=== PATIENT | male | born 1955 | race Caucasian/White ===

== ENCOUNTER → 2016-12-13 18:59 | Outpatient (CLI) | payer MEDICARE ==
[~2016-12-13 18:59] MED LIST: BACLOFEN10 MG PO; CYCLOBENZAPRINE10 MG PO; GABAPENTIN PO; HYDROCODONE-APA1 TAB PO; LISINOPRIL; LYRICA50 MG PO; NEURONTIN 300300 MG PO; PERCOCET 10/3251 TA1 PO
[2016-12-25 10:53] VITALS: BMI 31.9
== END | disposition home or self-care (01) ==
LOC: D.LABREF 18:59
DX: M19.011 Primary osteoarthritis, right shoulder (principal)

== ENCOUNTER 2016-12-25 07:53 | Inpatient (IN) | payer MEDICARE ==
[2016-12-21 15:05] LABS: BASOPHILS 0.1 % (0.0-2.0); EOSINOPHILS 0.8 % (0-7); HEMATOCRIT 45.5 % (42.0-54.0); HEMOGLOBIN 15.8 g/dL (13.5-17.5); MCH 31.9 pg (26.0-34.0); MCHC 34.7 g/dL (31.0-37.0); MCV 91.7 fL (80.0-100.0); MEAN PLATELET VOLUME 11.2 fL (7.4-10.4); MONOCYTES 6.3 % (2-11); NEUTROPHILS 57.8 % (40-80); PLATELET COUNT 173 10x3/uL (130-400); RBC 4.96 10x6/uL (4.20-6.10); RDW 13.8 % (11.5-14.5); WBC 7.4 10x3/uL (4.8-10.8)
[2016-12-21 15:17] LABS: APTT 29.2 SECONDS (22.8-39.4); INR 1.15 (0.85-1.17); PROTIME 14.6 SECONDS (11.6-15.0)
[2016-12-21 15:21] LABS: APPEARANCE CLEAR (CLEAR); BILIRUBIN NEGATIVE (NEGATIVE); COLOR DK YELLOW (YELLOW); GLUCOSE NEGATIVE (NEGATIVE); KETONE NEGATIVE (NEGATIVE); LEUKOCYTE ESTERASE 1+ (NEGATIVE); NITRITE NEGATIVE (NEGATIVE); PROTEIN NEGATIVE (NEGATIVE)
[2016-12-21 15:22] LABS: BACTERIA FEW /hpf (NONE SEEN); EPITHELIAL CELLS 0-5 /hpf (0-5); MUCUS <1+ /lpf (NONE SEEN); WHITE CELLS - URINE 0-5 /hpf (0-5)
[2016-12-21 15:26] LABS: CALC OSMOLALITY 279 mosm/kg (275-300); CARBON DIOXIDE 28.9 mmol/L (21.0-32.0); CHLORIDE - SERUM 103 mmol/L (98-107); CREATININE - SERUM 0.9 mg/dL (0.6-1.3); GLUCOSE 114 mg/dL (74-106); SODIUM 141 mmol/L (136-145); UREA NITROGEN 7 mg/dL (7-18); eGFR NON AFRICAN AMERICAN > 90 mL/min (90-120)
[2016-12-22 11:46] LABS: ALBUMIN 3.8 g/dL (3.4-5.0); BILIRUBIN - DIRECT 0.09 mg/dL (0.00-0.30); BILIRUBIN - INDIRECT 0.33 mg/dL (0.00-1.00); BILIRUBIN - TOTAL 0.42 mg/dL (0.2-1.3); PROTEIN - SERUM 8.2 g/dL (6.4-8.2)
[2016-12-25] VITALS (13 sets, daily range): BP systolic 103–142; BP diastolic 70–100; Ht 157.5 cm; Wt 79.1 kg
[~2016-12-25] VITALS: Ht 157.5 cm; Wt 79.1 kg
--- NOTE | 2016-12-25 06:44 | NUR ---
0630 PT STATES NO CHANGES IN HEALTH HISTORY ASSESSMENT SINCE INTERVIEWED ON 12/21/16. Dileep PAYTON R.N.
[~2016-12-25 07:53] MED LIST changes: -PERCOCET 10/3251 TA1 PO
--- NOTE | 2016-12-25 08:37 | NUR ---
RIGHT SHOULDER SCRUBBED WITH ALCOHOL AND CHLORAHEXADINE BEFORE PREPPED.
--- NOTE | 2016-12-25 10:20 | NUR ---
PATIENT RECEIVED TO FLOOR FROM PACU. A/O X4. VITAL SIGNS STABLE. CONTINUOUS BLOCK INTACT. DRESSING TO RIGHT SHOULDER CLEAN, DRY AND INTACT. ICE PACK AND SLING IN PLACE. ORIENTED TO ROOM. SIDE RAILS UP X3. BED IN LOW POSITION. CALL LIGHT IN REACH. INCENTIVE SPIROMETER AND USE ON TEACHING PROVIDED. STATES UNDERSTANDING. WILL CONTINUE TO MONITOR.
--- NOTE | 2016-12-25 12:45 | NUR ---
ALERT IN BED. RESPIRATIONS EVEN AND UNLABORED. DENIES NEEDS. VITAL SIGNS STABLE. SIDE RAILS UP X2. BED IN LOW POSITION. CALL LIGHT IN REACH. BED ALARM ON.
--- NOTE | 2016-12-25 14:52 | NUR ---
ALERT IN BED WATCHING TV. NO SIGNS OF DISTRESS NOTED. SCHEDULED MEDICATION ADMINISTERED. DENIES PAIN AND OTHER NEEDS. SIDE RAILS UP X2. BED IN LOW POSITION. CALL LIGHT IN REACH. BED ALARM ON.
--- NOTE | 2016-12-25 16:36 | NUR ---
ALERT IN BED TALKING ON PHONE. DENIES NEEDS. BED IN LOW POSITION. SIDE RAILS UP X2. BED IN LOW POSITION. CALL LIGHT IN REACH. BED ALARM ON.
--- NOTE | 2016-12-25 18:25 | NUR ---
XANAX PER PRN ORDER. DENIES FURTHER NEEDS. ICE PACK TO RIGHT SHOULDER. SIDE RAILS UP X2. BED IN LOW POSITION. CALL LIGHT IN REACH.
--- NOTE | 2016-12-25 19:20 | NUR ---
RECIEVED SHIFT REPORT. PT IS LYING IN BED. ALERT AND ORIENTED AND ABLE TO VERBALIZE NEEDS. IV IS PATENT AND FLUIDS ARE RUNNING PER ORDER. DRESSING TO RIGHT SHOULDER C/D/I. BLOCK SITE C/D/I. SLING NOTED TO LEFT ARM. PT IS AMBULATOTY WITH ASSISTANCE. PT STATES PAIN IS 8/10. NO NEEDS ARE VERBALIZED AT THIS TIME. WILL CONTINUE TO MONITOR. SIDE RAILS ARE UP X 2. BED IS IN LOWEST POSITION. BED ALARM IS ON FOR SAFETY. CALL LIGHT IS WITHIN REACH.
--- NOTE | 2016-12-25 20:24 | NUR ---
SHIFT ASSESSMENT COMPLETED. NIGHT MEDS GIVEN WITH NO PROBLEMS. PT C/O PAIN 05/10. ADMINISTERED PRESCRIBED PRN NORCO PER ORDER. DENIES FURTHER NEEDS. WILL MONITOR. SIDE RAILS X 2. BED LOW. BED ALARM ON. CALL LIGHT IN REACH.
--- NOTE | 2016-12-25 22:05 | NUR ---
PT IV INFILTRATED. D/C'D WITH CATHETER TIP INTACT BY ANOTHER RN ON FLOOR. WILL RESITE.
[2016-12-26 04:00] VITALS: BP 118/81
--- NOTE | 2016-12-26 06:50 | NUR ---
PATIENT RECEIVED ALERT IN HIGH LEE POSITION WATCHING TV. NO SIGNS OF DISTRESS NOTED. COFFEE PROVIDED PER REQUEST. DENIES FURTHER NEEDS. SIDE RAILS UP X2. BED IN LOW POSITION. CALL LIGHT IN REACH.
--- NOTE | 2016-12-26 08:10 | NUR ---
PATIENT ALERT IN BED. NO SIGNS OF DISTRESS NOTED. SCHEDULED MEDICATION ADMINISTERED. SIDE RAILS UP X2. BED IN LOW POSITION. CALL LIGHT IN REACH.
[2016-12-26 08:33] VITALS: BP 119/81
--- NOTE | 2016-12-26 09:30 | NUR ---
PATIENT UP AMBULATING IN HALLWAY WITH PT. NO SIGNS OF DISTRESS NOTED. WILL CONTINUE TO MONITOR.
[2016-12-26 09:40] LABS: HEMATOCRIT 41.3 % (42.0-54.0); HEMOGLOBIN 14.1 g/dL (13.5-17.5)
--- NOTE | 2016-12-26 11:47 | NUR ---
Patient Name: GABRIEL STUART Admission Status: Elective Accout number: [id number] Admission Date: 12-25-2016 : 1955 Admission Diagnosis: Attending: BRITTON Current LOS: 1 Anticipated DC Date: 12-27-2016 Planned Disposition: Home or Self Care Primary Insurance: MEDICARE A & B Discharge Planning Comments: CM MET WITH PATIENT REGARDING D/C NEEDS AND PLANS. PATIENT STATED HE LIVES WITH HIS (ZANDER), DAUGHTER AND GRANDKIDS. PATIENT STATED THERE ARE 6 STEPS W/RAILS TO ENTER HOME AND NO STAIRS INSIDE. PATIENT IS INDEPENDENT WITH HIS CARE AND HAS A CANE AT HOME. PATIENTS PCP IS DR. REA AND PHARMACY IS [facility] ON [address] PATIENT REFUSED HOME HEALTH. CM WILL CONTINUE TO FOLLOW PATIENT WITH D/C NEEDS AND PLANS. PCP DR. [facility]LVARO [place] ON [address] [phone] ZANDER (SPOUSE) [phone] Associate Professor Of Pathology: Yolie Govea Is the patient Alert and Oriented? Yes 0 * How many steps to enter\exit or inside your home? 6 W/RAILS 0 * PCP DR. REA 0 * Pharmacy [facility] [address] 0 * Preadmission Environment Home with Family 0 * ADLs Independent 0 * Equipment Cane 0 * List name and contact numbers for known caregivers / representatives who currently or will assist patient after discharge: ZANDER (SPOUSE) [phone] 0 * Community resources currently utilized None 0 * Additional services required to return to the preadmission environment? Yes 0 * Can the patient safely return to the preadmission environment? Yes 0 * Has this patient been hospitalized within the prior 30 days at any hospital? No 0 Grand Total: 0
[2016-12-26 12:50] VITALS: BP 128/81
--- NOTE | 2016-12-26 15:06 | NUR ---
SITTING UP IN CHAIR ALERT. NO SIGNS OF DISTRESS NOTED. SCHEDULED MEDICATION ADMINISTERED WELL PRN NORCO. DENIES NEEDS. CALL LIGHT IN REACH.
[2016-12-26 17:33] VITALS: BP 122/85
--- NOTE | 2016-12-26 18:25 | NUR ---
ALERT IN BED WATCHING TV. NO SIGNS OF DISTRESS NOTED. SIDE RAILS UP X2. BED IN LOW POSITION. CALL LIGHT IN REACH.
--- NOTE | 2016-12-26 19:15 | NUR ---
RECIEVED SHIFT REPORT. PT IS LYING IN BED. ALERT AND ORIENTED AND ABLE TO VERBALIZE NEEDS. IV IS PATENT AND SALINE LOC AT THIS TIME. DRESSING TO RIGHT SHOULDER C/D/I. SLING NOTED. PT IS AMBULATORY WITH ASSISTANCE. PT STATES PAIN IS 5/10. NO NEEDS ARE VERBALIZED AT THIS TIME. WILL CONTINUE TO MONITOR. SIDE RAILS ARE UP X 2. BED IS IN LOWEST POSITION. CALL LIGHT IS WITHIN REACH.
--- NOTE | 2016-12-26 21:19 | NUR ---
SHIFT ASSESSMENT COMPLETED. NIGHT MEDS GIVEN WITH NO PROBLEMS. PT C/O PAIN 03/10. ADMINISTERED PRESCRIBED PRN NORCO PER ORDER. DENIES FURHTER NEEDS. WILL MONITOR. SIDE RAILS X 2. BED LOW. CALL LIGHT IN REACH.
[2016-12-26 22:58] VITALS: BP 117/89
[2016-12-27 02:04] VITALS: BP 129/84
[2016-12-27 06:15] VITALS: BP 129/88
--- NOTE | 2016-12-27 06:55 | NUR ---
PATIENT RECEIVED ALERT IN HIGH LEE POSITION WATCHING TV. RESPIRATIONS EVEN AND UNLABORED. SIDE RAILS UP X2. BED IN LOW POSITION. CALL LIGHT IN REACH.
[2016-12-27] MEDS ORDERED: PERCOCET 10/3251 TA1 PO (08:02)
--- NOTE | 2016-12-27 08:11 | NUR ---
PATIENT ALERT IN BED. NO SIGNS OF DISTRESS NOTED. SCHEDULED MEDICATION ADMINISTERED WELL PRN NORCO. NO FURTHER NEEDS VOICED. SIDE RAILS UP X2. BED IN LOW POSITION. CALL LIGHT IN REACH.
[2016-12-27 08:46] VITALS: BP 146/93
--- NOTE | 2016-12-27 10:29 | NUR ---
PATIENT IN MID LEE POSITION RESTING WITH EYES CLOSED. RESPIRATIONS EVEN AND UNLABORED. SIDE RAILS UP X2. BED IN LOW POSITION. CALL LIGHT IN REACH.
--- NOTE | 2016-12-27 12:23 | NUR ---
ALERT IN BED. C/O PAIN 05/10. 1 TAB PERCOCET PER PRN ORDER. NO FURTHER NEEDS. SIDE RAILS UP X2. BED IN LOW POSITION. CALL LIGHT IN REACH.
[2016-12-27 12:45] VITALS: BP 143/97
--- NOTE | 2016-12-27 13:46 | NUR ---
CM REASSESSMENT NOTE: PATIENT IS DISCHARGING HOME TODAY - FAMILY DRIVING HER. PATIENT REFUSED HOME HEALTH OR ANY OTHER NEEDS FOR DISCHARGE.
--- NOTE | 2016-12-27 15:20 | NUR ---
IV TO LEFT FOREARM D/C WITH CATH TIP INTACT. SITE COVERED WITH GAUZE AND BANDAID. DENIES FURTHER NEEDS.
--- NOTE | 2016-12-27 17:00 | NUR ---
D/C TEACHING AND WRITTEN PRESCRIPTION PROVIDED. AMBULATED OFF UNIT WITH STAFF. D/C HOME WITH DAUGHTER IN LAW
--- NOTE | 2017-01-04 14:26 | OP ---
PATIENT NAME: GABRIEL STUART MEDICAL RECORD: [id number] :[birth year] LOCATION:[id number] ADMISSION DATE:12/25/16 SURGEON: KHALIDA SANDERSON MD DATE OF OPERATION: 12/25/2016 Orthopedic Surgery Operative Note PREOPERATIVE DIAGNOSIS: Degenerative arthritis, right shoulder. POSTOPERATIVE DIAGNOSIS: Degenerative arthritis, right shoulder. PROCEDURE: Right total shoulder arthroplasty. SURGEON: Khalida Sanderson MD ANESTHESIA: General. INTRAOPERATIVE COMPLICATIONS: None. SUMMARY OF PATHOLOGIC FINDINGS: The patient has extensive osteoarthritis consistent with preoperative diagnosis. OPERATIVE SUMMARY IN DETAIL: After obtaining the appropriate preoperative orthopedic surgery consent as well as anesthetic consultation, evaluation and clearance, the patient was brought to the operating room and placed on the operating table in supine position. After adequate general laryngeal mask airway was administered, the patient was placed in the beach chair position. All pressure points were well padded to include bilateral lower extremities. He was held firmly to the operating table using the vacuum pack suction system. Right upper extremity and shoulder were prepped and draped in routine sterile fashion. Deltopectoral incision was taken down to the clavipectoral fascia while protecting the cephalic vein. The clavipectoral fascia was incised. The deltoid was retracted using the Ponce-Deltoid retractor. The conjoint tendon was gently retracted using a PCL. The subscapularis was taken down and reflected to reveal the humeral head and osteoarthritic findings. The humeral head was dislocated into the incision and the proximal humeral head cut was made using the humeral head cutting guide. At this point, the cup protector was placed across humeral head. The glenoid was approached. Serial and sequential labrectomy was followed by reaming and preparing for the glenoid. After preparations were made, the wound was copiously irrigated. The glenoid was cemented into place. He was held firmly into place until the cement hardened. All excess cement was removed prior to this. Attention was then returned to the proximal humerus. Serial and sequential reaming were done followed by broaching to the appropriate size. The head size was measured and the trial was put into place and thought to be most appropriate given the patient's fit and fill. Final component was cemented into place with ____ into place on the Lynch taper after the inferior and central locking screws for the Arthrex system were done. After the humeral head was tamped into the Lynch taper and checked, it was reduced and found to be good range of motion. At this point, transosseous repair of the subscapularis was done while incorporating the biceps tenodesis. The wound was then copiously irrigated and closed with #1 Vicryl followed by 2-0 Vicryl and skin uvaldo. Sterile dressings were applied. The patient was awakened, taken to recovery room in stable condition. All final needle and sponge counts were correct. OPERATIVE REPORT [id number] GABRIEL STUART TRANSINT:[id number] Voice Confirmation ID: [id number] DOCUMENT ID: [id number] MARIA E MCGRATH, KHALIDA FARR at 1426 CC: [id number] DICTATION DATE: 01/04/17951 BAKER TEST: 01/04/17 1216 DIS IN 12/27/16 [id number] [place] [address]
== END 2016-12-27 17:15 | disposition home or self-care (01) | DRG 483 ==
LOC: D.MS 07:53 → D.SDCHOLD 07:53 → D.MS 10:20
PROVIDERS: ADMIT Orthopaedic Surgery
PROC: 0RRJ0JZ Replacement of Right Shoulder Joint with Synthetic Substitute, Open Approach (ICD-10-PCS; principal; 2016-12-25 08:15)
DX: M19.011 Primary osteoarthritis, right shoulder (principal); K21.9 Gastro-esophageal reflux disease without esophagitis; I10 Essential (primary) hypertension; F17.200 Nicotine dependence, unspecified, uncomplicated

== ENCOUNTER 2017-03-20 14:17 | Emergency (ER) | payer MEDICARE ==
[2016-12-25 10:53] VITALS: BMI 31.9
[~2017-03-20 14:17] MED LIST changes: +PERCOCET 10/3251 TA1 PO
[2017-03-20 15:15] LABS: ALBUMIN 4.3 g/dL (3.4-5.0); ALKALINE PHOSPHATASE 90 U/L (46-116); ALT (SGPT) 156 U/L (10-68); BILIRUBIN - TOTAL 0.93 mg/dL (0.2-1.3); CALC OSMOLALITY 279 mosm/kg (275-300); CARBON DIOXIDE 24.5 mmol/L (21.0-32.0); CHLORIDE - SERUM 102 mmol/L (98-107); GLUCOSE 90 mg/dL (74-106); POTASSIUM - SERUM 3.8 mmol/L (3.5-5.1); PROTEIN - SERUM 8.5 g/dL (6.4-8.2); SODIUM 140 mmol/L (136-145); UREA NITROGEN 14 mg/dL (7-18); eGFR NON AFRICAN AMERICAN 81 mL/min (90-120)
[2017-03-20 16:08] LABS: BASOPHILS 0.1 % (0-2); EOSINOPHILS 0 % (0-7); HEMATOCRIT 47.2 % (42.0-54.0); HEMOGLOBIN 16.1 g/dL (13.5-17.5); IMMATURE GRANULOCYTES 0.3 % (0-5); MCH 31.3 pg (26.0-34.0); MCHC 34.1 g/dL (31.0-37.0); MCV 91.8 fL (80.0-100.0); MEAN PLATELET VOLUME 11.7 fL (7.4-10.4); MONOCYTES 9.2 % (2-11); NEUTROPHILS 63.4 % (40-80); PLATELET COUNT 183 10x3/uL (130-400); RBC 5.14 10x6/uL (4.20-6.10); RDW 14.2 % (11.5-14.5); WBC 7.5 10x3/uL (4.8-10.8)
[2017-03-20 16:57] LABS: UDS - AMPHET NEGATIVE QUAL (NEGATIVE); UDS - BARB NEGATIVE QUAL (NEGATIVE); UDS - BENZO NEGATIVE QUAL (NEGATIVE); UDS - COCAINE NEGATIVE QUAL (NEGATIVE); UDS - METH NEGATIVE QUAL (NEGATIVE); UDS - OPIATE NEGATIVE QUAL (NEGATIVE); UDS - PCP NEGATIVE QUAL (NEGATIVE); UDS - THC POSITIVE QUAL (NEGATIVE)
[2017-03-20 17:27] LABS: APPEARANCE HAZY (CLEAR); BACTERIA FEW /hpf (NONE SEEN); BILIRUBIN NEGATIVE (NEGATIVE); COLOR DK YELLOW (YELLOW); EPITHELIAL CELLS 0-5 /hpf (0-5); GLUCOSE NEGATIVE (NEGATIVE); GRANULAR CAST OCC /lpf (NONE SEEN); HYALINE CAST 0-5 /lpf (NONE SEEN); KETONE MODERATE mg/dL (NEGATIVE); LEUKOCYTE ESTERASE TRACE (NEGATIVE); MUCUS >1+ /lpf (NONE SEEN); NITRITE NEGATIVE (NEGATIVE); PROTEIN NEGATIVE (NEGATIVE); SPECIFIC GRAVITY 1.015 (1.005-1.020); UROBILINOGEN NORMAL (NORMAL)
== END 2017-03-21 06:25 | disposition home or self-care (01) ==
LOC: D.ER 14:17
PROVIDERS: Emergency Medicine
DX: F33.9 Major depressive disorder, recurrent, unspecified (principal); R45.851 Suicidal ideations; G89.18 Other acute postprocedural pain

== ENCOUNTER 2017-11-20 09:40 | Emergency (ER) | payer MEDICARE ==
[2016-12-25 10:53] VITALS: BMI 31.9
== END 2017-11-20 14:45 | disposition home or self-care (01) ==
LOC: D.ER 09:40
DX: S46.211A Strain of muscle, fascia and tendon of other parts of biceps, right arm, initial encounter (principal); X50.9XXA Other and unspecified overexertion or strenuous movements or postures, initial encounter; Y93.89 Activity, other specified; Y92.89 Other specified places as the place of occurrence of the external cause; F17.200 Nicotine dependence, unspecified, uncomplicated